=== PATIENT | male | born 1965 | race Caucasian/White ===

== ENCOUNTER → 2018-10-14 | Day surgery (SDC) | payer BC ==
[~2018-10-14] MED LIST: ASPIR 8181 MG PO; ATENOLOL50 MG PO; ATORVASTATIN CA20 MG PO; BUPIVACAINE HCL 0.5% 10ML MPF VIAL INJ ONE; CEFAZOLIN SOD 1 GM/NS 50ML 50 ML IV ONE; DEXAMETHASONE SOD PHOS INJ 4 MG/ML VIAL ONE; FENTANYL CITRATE/PF 100MCG/2 ML INJ ONE; LEVOTHYROXINE50 MCG PO; LIDOCAINE HCL 2% LOCAL INJ 5 ML SDV VIAL INJ ONE; MIDAZOLAM HCL 2 MG/2 ML VIAL ONE; OMEPRAZOLE40 MG PO; ONDANSETRON HCL INJ 2MG/ML 2ML 2 MG/ML VIAL ONE; PROPOFOL IV EMULSION 10 MG/ML 20 ML VIAL ONE; TESTOSTERO200 MG/1 M INJ
[2018-10-14 09:25] VITALS: BP 157/81
--- NOTE | 2018-10-14 15:30 | Operative Report ---
DATE OF PROCEDURE: 10/14/2018 SURGEON: Jessee Shaw MD VISUAL PRESENTATION MANAGER: Juanito Velazquez PA-C. PREOPERATIVE DIAGNOSES: Bilateral carpal tunnel syndrome, right trigger thumb. POSTOPERATIVE DIAGNOSES: Bilateral carpal tunnel syndrome, right trigger thumb. PROCEDURES: Bilateral endoscopic carpal tunnel release, right trigger thumb release. INDICATIONS: The patient is a 53-year-old gentleman with clinic signs and symptoms consistent with right trigger thumb and bilateral carpal tunnel syndrome. He has failed conservative management and would like to proceed with surgical intervention. The risks and benefits of the procedure have been discussed. He states he understands and wishes to proceed. PROCEDURE IN DETAIL: The patient was brought to the operating room and placed under general anesthetic. Both upper extremities were prepped and draped in a sterile manner. A preoperative time-out was performed. Initial attention was directed towards the right upper extremity. The extremity was exsanguinated and a proximal tourniquet was inflated to 250 mmHg. Initial attention was directed towards the thumb. An incision in the base of the thumb was made. The A1 erika was identified and released. The tendon was retracted from the wound and noted to have no further stenosing tenosynovitis. There was some fraying of the tendon evident. The wound was closed with interrupted nylon stitches. 1 mL of 0.5% Marcaine without epinephrine was injected around the incision. Attention was then directed towards the carpal tunnel. An incision was made over the flexion crease of the right wrist. The flexor retinaculum was identified, elevated and incised. An elevator was used to tease the tenosynovium off the undersurface of the transverse carpal ligament. Dilators were placed and the hook of the hamate was palpated. The [employer] endoscope was then placed into the carpal tunnel. The undersurface of the transverse carpal ligament was cleanly visualized without evidence of soft tissue interposition. The knife was deployed and the ligament was cut from distal to proximal. The proximal retinaculum was incised under direct visualization. The wound was then closed with interrupted nylon stitches. The same carpal tunnel procedure was performed on the left side. Sterile bandages were placed on both hands. The patient was extubated and transported to the recovery room in stable condition. There was no blood loss and all needle and sponge counts were correct. Jessee Shaw MD DR/KETAN /[id number]
== END | disposition home or self-care (01) ==
LOC: OR 05:25
PROVIDERS: ATTEND Specialist
DX: G56.03 Carpal tunnel syndrome, bilateral upper limbs (principal); M65.311 Trigger thumb, right thumb; G47.33 Obstructive sleep apnea (adult) (pediatric); I10 Essential (primary) hypertension; E78.5 Hyperlipidemia, unspecified; F17.210 Nicotine dependence, cigarettes, uncomplicated; Z01.810 Encounter for preprocedural cardiovascular examination; Z68.41 Body mass index [BMI] 40.0-44.9, adult
CPT/HCPCS: 26055; 29848; 93005; J0690; J1100; J2001; J2250; J2405; J2704

== ENCOUNTER → 2022-09-18 | Outpatient (CLI) | payer BC ==
[~2022-09-18] MED LIST changes: -BUPIVACAINE HCL 0.5% 10ML MPF VIAL INJ ONE; -CEFAZOLIN SOD 1 GM/NS 50ML 50 ML IV ONE; -DEXAMETHASONE SOD PHOS INJ 4 MG/ML VIAL ONE; -FENTANYL CITRATE/PF 100MCG/2 ML INJ ONE; -LIDOCAINE HCL 2% LOCAL INJ 5 ML SDV VIAL INJ ONE; -MIDAZOLAM HCL 2 MG/2 ML VIAL ONE; -ONDANSETRON HCL INJ 2MG/ML 2ML 2 MG/ML VIAL ONE; -PROPOFOL IV EMULSION 10 MG/ML 20 ML VIAL ONE
[2022-09-18 07:57] LABS: CHOL/HDL RATIO 4.4 (3.9-4.7)
== END ==
LOC: MRI 07:05
PROVIDERS: ATTEND Psychiatry & Neurology Clinical Neurophysiology
DX: I63.39 Cerebral infarction due to thrombosis of other cerebral artery (principal); H53.451 Other localized visual field defect, right eye; E78.49 Other hyperlipidemia; R26.89 Other abnormalities of gait and mobility; Z13.1 Encounter for screening for diabetes mellitus
CPT/HCPCS: 36415; 70544; 70547; 70551; 80061; 83036; 93306

== ENCOUNTER → 2022-09-27 | Outpatient (CLI) | payer BC | LOC: RAD 07:43 | PROVIDERS: ATTEND Psychiatry & Neurology Clinical Neurophysiology | DX: I63.39 Cerebral infarction due to thrombosis of other cerebral artery (principal); H53.451 Other localized visual field defect, right eye; R26.89 Other abnormalities of gait and mobility; E78.49 Other hyperlipidemia; Z13.1 Encounter for screening for diabetes mellitus | CPT/HCPCS: 93005 ==